=== PATIENT | female | born 2000 | race Two or more races ===

== ENCOUNTER 2023-09-11 01:19 | Emergency (ER) | payer OTHER ==
[2023-09-11 02:02] LABS: APPEARANCE,URINE CLEAR (Clear); BILIRUBIN,URINE NEGATIVE (Negative); COLOR,URINE YELLOW (Yellow); GLUCOSE,URINE NEGATIVE (Negative); KETONES,URINE NEGATIVE (Negative); LEUKOCYTE ESTERASE,URINE TRACE (Negative); NITRITE,URINE NEGATIVE (Negative); OCCULT BLOOD,URINE NEGATIVE (Negative); PROTEIN,URINE NEGATIVE (Negative); UROBILINOGEN,URINE 0.2 (0.2-1.0)
[2023-09-11 02:13] LABS: BACTERIA,URINE FEW /hpf (FEW); EPITHELIAL CELLS,URINE 0-5 /hpf (0-5); RBC,URINE NOT SEEN /hpf (0-5); WBC,URINE 0-5 /hpf (0-5)
[2023-09-11 02:14] LABS: AMORPHOUS SEDIMENT,URINE MODERATE /hpf (NOT SEEN); MUCUS,URINE RARE /hpf (FEW)
== END 2023-09-11 03:00 | disposition home or self-care (01) ==
LOC: JD.ED 01:19
DX: S46.911A Strain of unspecified muscle, fascia and tendon at shoulder and upper arm level, right arm, initial encounter (principal); V47.5XXA Car driver injured in collision with fixed or stationary object in traffic accident, initial encounter; Y92.410 Unspecified street and highway as the place of occurrence of the external cause
CPT/HCPCS: 73030-26-RT; 73030-RT; 81001; 81025; 99283; 99284